=== PATIENT | female | born 1970 | race Hispanic/Latino ===

== ENCOUNTER 2016-08-03 11:51 | Emergency (ER) | payer SELFPAY ==
[2016-08-03 13:34] VITALS: BP 165/110
--- NOTE | 2016-08-03 15:34 | XRay Report ---
RIGHT SHOULDER: History: Right shoulder pain. Routine views demonstrate normal bony and soft tissue structures with normal joint alignment of the shoulder. IMPRESSION: No acute process.
== END 2016-08-03 22:25 | disposition left against medical advice (07) ==
LOC: ED 11:51
DX: M25.511 Pain in right shoulder (principal); G25.81 Restless legs syndrome; Z88.0 Allergy status to penicillin; Z88.5 Allergy status to narcotic agent; Z53.21 Procedure and treatment not carried out due to patient leaving prior to being seen by health care provider
CPT/HCPCS: 81025

== ENCOUNTER 2017-02-07 15:53 | Emergency (ER) | payer SELFPAY ==
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
[2017-02-07 19:04] LABS: Basophils % (Auto) 0.2 % (0.0-1.8); Eosinophils % (Auto) 0.9 % (0.0-4.3); Mean Corpuscular HGB Conc 30 % (30-34); Mean Corpuscular Volume 80 fl (79-97); Platelet Count 321 K/mm3 (140-440); Red Blood Count 4.38 M/mm3 (3.65-5.03); Red Cell Distribution Width 18.5 % (13.2-15.2); White Blood Count 11.2 K/mm3 (4.5-11.0)
[2017-02-07 19:22] LABS: Anion Gap 17 mmol/L; BUN/Creatinine Ratio 13; Blood Urea Nitrogen 8 mg/dL (7-17); Calcium 8.9 mg/dL (8.4-10.2); Carbon Dioxide 24 mmol/L (22-30); Chloride 100.4 mmol/L (98-107); Glucose 109 mg/dL (65-100); Potassium 4.1 mmol/L (3.6-5.0); Sodium 137 mmol/L (137-145)
[2017-02-07 19:24] LABS: Hematocrit 34.9 % (30.3-42.9); Hemoglobin 10.5 gm/dl (10.1-14.3); Mean Corpuscular Hemoglobin 24 pg (28-32)
--- NOTE | 2017-02-07 20:53 | XRay Report ---
FINAL REPORT PROCEDURE: XR CHEST ROUTINE 2V TECHNIQUE: PA and lateral chest radiographs were obtained. CPT 30475 HISTORY: Shortness of breath COMPARISON: No prior studies are available for comparison. FINDINGS: Heart: Normal. Mediastinum/Vessels: Normal. Lungs/Pleural space: Normal. Bony thorax: No acute osseous abnormality. Other: IMPRESSION: Normal examination.
[2017-02-07] MEDS ORDERED: TORADOL IM ONE (23:38)
--- NOTE | 2017-02-07 23:49 | Emergency Department Report ---
ED General Adult HPI - General Chief complaint: Upper Respiratory Infection Stated complaint: COUGHING Time Seen by Provider: 02/07/17 18:07 Source: patient, EMS Mode of arrival: Ambulatory Limitations: No Limitations - History of Present Illness Initial comments: 46 yo white female who comes in today due to chronic pain, shortness of breath, medication refills, and due to homelessness. She states that she lives at a homeless long term and has no where else to go. Marya Batres is her PCP. Onset/Timin -: days(s) Severity scale (0 -10): 5 Consistency: intermittent, other (Patient was sleeping in the room upon entry ) Improves with: none Worsens with: none Treatments Prior to Arrival: none - Related Data Home Medications Medication Instructions Recorded Confirmed Last Taken Carisoprodol [Soma] 350 mg PO TID 01/21/17 01/21/17 1 Week Ago ~01/14/17 Diazepam [Valium] 5 mg PO BID 01/21/17 01/21/17 1 Week Ago ~01/14/17 HYDROcodone/APAP 7.5-325 [[place] 7.5 mg PO Q6H 01/21/17 01/21/17 1 Week Ago 7.5-325 mg TAB] ~01/14/17 Zolpidem [Ambien] 10 mg PO QHS 01/21/17 01/21/17 1 Week Ago ~01/14/17 Previous Rx's Medication Instructions Recorded Last Taken Type Nicotine [Habitrol] 21 mg TD QDAY #30 patch 01/22/17 Unknown Rx Allergies Allergy/AdvReac Type Severity Reaction Status Date / Time morphine Allergy Rash Verified 08/03/16 13:28 Penicillins Allergy Angioedema Verified 08/03/16 13:28 ED Review of Systems ROS: Stated complaint: COUGHING Other details as noted in HPI Constitutional: denies: chills, fever Eyes: denies: eye pain, eye discharge, vision change ENT: denies: ear pain, throat pain Respiratory: see HPI Cardiovascular: denies: chest pain, palpitations Endocrine: no symptoms reported Gastrointestinal: denies: abdominal pain, nausea, diarrhea Genitourinary: denies: urgency, dysuria, discharge Musculoskeletal: as per HPI Skin: denies: rash, lesions Neurological: denies: headache, weakness, paresthesias Psychiatric: anxiety Hematological/Lymphatic: denies: easy bleeding, easy bruising ED Past Medical Hx - Past Medical History Previous Medical History?: Yes Hx Arthritis: Yes Additional medical history: Restless Leg Syndrome, Fibromyalgia, DJD - Surgical History Past Surgical History?: Yes Additional Surgical History: Right Knee surgery, Tonsilectomy - Social History Smoking Status: Current Every Day Smoker Substance Use Type: Prescribed - Medications Home Medications: Home Medications Medication Instructions Recorded Confirmed Last Taken Type Carisoprodol [Soma] 350 mg PO TID 01/21/17 01/21/17 1 Week Ago History ~01/14/17 Diazepam [Valium] 5 mg PO BID 01/21/17 01/21/17 1 Week Ago History ~01/14/17 HYDROcodone/APAP 7.5-325 [[place] 7.5 mg PO Q6H 01/21/17 01/21/17 1 Week Ago History 7.5-325 mg TAB] ~01/14/17 Zolpidem [Ambien] 10 mg PO QHS 01/21/17 01/21/17 1 Week Ago History ~01/14/17 Nicotine [Habitrol] 21 mg TD QDAY #30 patch 01/22/17 Unknown Rx ED Physical Exam - General Limitations: No Limitations General appearance: anxious - Head Head exam: Present: atraumatic, normocephalic - Eye Eye exam: Present: normal appearance - ENT ENT exam: Present: mucous membranes moist - Neck Neck exam: Present: normal inspection - Respiratory Respiratory exam: Present: normal lung sounds bilaterally. Absent: respiratory distress - Cardiovascular Cardiovascular Exam: Present: tachycardia - GI/Abdominal GI/Abdominal exam: Present: soft, normal bowel sounds - Extremities Exam Extremities exam: Present: normal inspection - Back Exam Back exam: Present: normal inspection - Neurological Exam Neurological exam: Present: alert, oriented X3 - Psychiatric Psychiatric exam: Present: agitated, anxious - Skin Skin exam: Present: warm, dry, intact, normal color. Absent: rash ED Course Vital Signs 02/07/17 15:58 Temperature 98.1 F Pulse Rate 101 H Respiratory 20 Rate Blood Pressure 170/102 O2 Sat by Pulse 95 Oximetry - Reevaluation(s) Reevaluation #1: 02/07/17 23:51 I spoke with the patient and she is requesting something for pain. She was informed by [facility] to come to the ED for pain control. She is also requesting help to assist her with long term. Physical exam unremarkable with the exception of anxiety. Reevaluation #2: 02/07/17 23:56 Will recheck her vitals before discharge. ED Medical Decision Making - Lab Data Result diagrams: 02/07/17 18:51 02/07/17 18:51 Critical care attestation.: If time is entered above; I have spent that time in minutes in the direct care of this critically ill patient, excluding procedure time. ED Disposition Clinical Impression: Anxiety, Chronic pain Disposition: DC- TO HOME OR SELFCARE Is pt being admited?: No Does the pt Need Aspirin: No Condition: Stable Instructions: Anxiety (ED), Chronic Pain (ED) Additional Instructions: Please return to your provider for medical managment. Please establish with pain management on discharge. Referrals: PRIMARY CAREMD [Primary Care Provider] - 3-5 Days Time of Disposition: 23:53
[2017-02-08 00:13] VITALS: BP 172/106
== END 2017-02-08 00:12 | disposition home or self-care (01) ==
LOC: ED 15:53
DX: F41.9 Anxiety disorder, unspecified (principal); M19.90 Unspecified osteoarthritis, unspecified site; F17.200 Nicotine dependence, unspecified, uncomplicated; Z88.6 Allergy status to analgesic agent; Z88.0 Allergy status to penicillin
CPT/HCPCS: 36415; 71020; 80048; 84484; 84703; 85025; 93005; 93010; 96372; 99284; J1885